=== PATIENT | female | born 1975 | race American Indian/Alaskan Native ===

== ENCOUNTER 2018-02-02 00:10 | Observation (INO) | payer BC ==
[2018-02-02 00:11] VITALS: BMI 43.2
[2018-02-02] MEDS ORDERED: Sodium Chloride 0.9% 1,000 ML IV STA (00:44)
--- NOTE | 2018-02-02 00:50 | ED PDOC ---
Arrival/HPI - General Chief Complaint: Headache Time Seen by Provider: 02/02/18 00:22 Historian: Patient - History of Present Illness Narrative History of Present Illness (Text): 02/02/18 00:45 42 year old female, whose past medical history includes cholecystectomy 1 year ago/anemia/hypertension/gastritis, obesity, presents to the emergency department complaining of upper abdominal pain associated with chest pain and difficulty breathing for the past 4 days. Patient reports that the pain is exertional. She denies any recent traveling. Patient states she does not have any fever, chills, cough, nausea/vomiting but reports pain every time she takes a deep breath in. Patient states she does not have a headache and disagrees with triage. Time/Duration: Other (4 days) Symptom Course: Unchanged Activities at Onset: Light Context: Home Past Medical History - Provider Review Nursing Documentation Reviewed: Yes - Travel History Have you recently traveled outside [place] w/in the past 3 mons?: No - Cardiac Hx Cardiac Disorders: Yes Hx Hypertension: Yes - Pulmonary Hx Respiratory Disorders: No Other/Comment: MORBID OBESITY - Neurological Hx Neurological Disorder: No - HEENT Hx HEENT Disorder: No - Renal Hx Renal Disorder: No - Endocrine/Metabolic Hx Endocrine Disorders: No - Hematological/Oncological Hx Blood Disorders: Yes Hx Anemia: Yes (ETIOLOGY UNKNOWN) - Integumentary Hx Dermatological Disorder: No - Musculoskeletal/Rheumatological Hx Musculoskeletal Disorders: Yes Hx Back Pain: Yes Hx Osteoarthritis: Yes - Gastrointestinal Hx Gastrointestinal Disorders: Yes Hx Gall Bladder Disease: Yes Other/Comment: HX: ABDOMINAL PAIN - Genitourinary/Gynecological Hx Genitourinary Disorders: Yes Other/Comment: HX: IUD INSERTED 1 YEARS AGO. LAST July - Psychiatric Hx Psychophysiologic Disorder: No Hx Substance Use: No - Surgical History Hx Cholecystectomy: Yes - Anesthesia Hx Anesthesia: Yes Hx Anesthesia Reactions: No - Suicidal Assessment Feels Threatened In Home Enviroment: No Family/Social History - Physician Review Nursing Documentation Reviewed: Yes Family/Social History: No Known Family HX Smoking Status: Never Smoked Hx Alcohol Use: No Hx Substance Use: No Allergies/Home Meds Allergies/Adverse Reactions: Allergies shrimp Allergy (Intermediate, Verified 07/02/17 14:37) RASH Home Medications: Home Meds Medication Instructions Recorded Confirmed Losartan/Hydrochlorothiazide 1 tab PO DAILY 05/18/16 07/02/17 [Losartan-Hctz 100-25 mg Tab] Ferrous Sulfate [Ferosul] 1 PO DAILY 02/02/18 hydrALAZINE [Apresoline] 1 PO TID 02/02/18 Review of Systems - Physician Review All systems were reviewed & negative as marked: Yes - Review of Systems Constitutional: absent: Fevers, Other (Chills) Eyes: absent: Vision Changes ENT: absent: Hearing Changes, Sore Throat, Rhinorrhea Respiratory: SOB. absent: Cough Cardiovascular: Chest Pain Gastrointestinal: Abdominal Pain. absent: Diarrhea, Nausea, Vomiting Musculoskeletal: absent: Arthralgias, Myalgias Skin: absent: Rash, Pruritis, Skin Lesions Neurological: absent: Headache Psychiatric: absent: Anxiety, Depression, Suicidal Ideation Physical Exam Vital Signs Reviewed: Yes Vital Signs Temp Pulse Resp BP Pulse Ox 02/02/18 03:40 98 02/02/18 03:35 69 20 143/92 H 98 02/02/18 02:41 77 18 158/90 H 99 02/02/18 02:25 64 18 166/94 H 99 02/02/18 00:32 98.4 F 69 20 164/101 H 98 Temperature: Afebrile Blood Pressure: Hypertensive Pulse: Regular Respiratory Rate: Normal Appearance: Positive for: Well-Appearing, Non-Toxic, Comfortable Pain Distress: Moderate Mental Status: Positive for: Alert and Oriented X 3 - Systems Exam Head: Present: Atraumatic, Normocephalic Pupils: Present: PERRL Extroacular Muscles: Present: EOMI Conjunctiva: Present: Normal Ears: Present: NORMAL TM, Normal Canal. No: Erythema Mouth: Present: Moist Mucous Membranes Neck: Present: Normal Range of Motion Respiratory/Chest: Present: Clear to Auscultation, Good Air Exchange. No: Respiratory Distress, Accessory Muscle Use Cardiovascular: Present: Regular Rate and Rhythm, Normal S1, S2. No: Murmurs Abdomen: Present: Tenderness (tender on the upper abdominal region specifically on the epigastric region, no cva tenderness). No: Distention, Peritoneal Signs , Rebound, Guarding Back: Present: Normal Inspection. No: CVA Tenderness, Midline Tenderness Upper Extremity: Present: Normal Inspection. No: Cyanosis, Edema Lower Extremity: Present: Normal Inspection. No: Edema Neurological: Present: GCS=15, CN II-XII Intact, Speech Normal Skin: Present: Warm, Dry, Normal Color. No: Rashes Psychiatric: Present: Alert, Oriented x 3, Normal Insight, Normal Concentration Medical Decision Making ED Course and Treatment: 02/02/18 00:45 Differential: MS vs. PE vs. Pneumonia vs. Gastritis vs. Pancreatitis vs. UTI vs. Muscular skeletal pain -Labs/cardiac enzyme/dimer/ua -EKG -CXR -IVF/pepcid/toradol -Observe and reassess 02/02/18 01:56 -Urine hcg is negative -HEART score is 4, will need to be admit/observe -EKG: NSR @ 68 BPM, no ST elevation or depression, no T wave inversion. -Chest xray show no active disease -Labs show no acute findings except hgb 9.9 -Dimer is negative -Cardiac enzyme is negative -BNP is negative -UA ordered and pending result -07/2016 echo/stress show: borderline LVH, mild MR/TR noted with mildly elevated pulmonary pressure with LVEF 54% -Pt. still feel chest pain and shortness of breath on exertion, will needs client technical specialist and business planning manager consult. -I spoke to Dr. Couch about this case, discussed about the case/labs/radiology result, request to order next set of cardiac enzyme for her and routine consult order for Dr. Brunner and Dr. Ocampo. She will follow up on any pending labs/ radiology study and carrying on the care for the patient for this point on. -I discussed with DR. Jackson and he will put in the admission order. - Lab Interpretations Microbiology Results: Microbiology Results 02/02/18 01:09 Urine,Clean Catch Urine Culture - Final No Growth (<1,000 CFU/ML) Lab Results: 02/02/18 01:01 02/02/18 01:01 Lab Results 02/02/18 01:09: Urine Color Yellow, Urine Appearance Sl cloudy, Urine pH 6.0, Ur Specific Jenners 1.025, Urine Protein Trace H, Urine Glucose (UA) Negative, Urine Ketones Negative, Urine Blood Small H, Urine Nitrate Negative, Urine Bilirubin Negative, Urine Urobilinogen 0.2, Ur Leukocyte Esterase Trace H, Urine RBC 1 - 3, Urine WBC 5 - 10, Ur Epithelial Cells 1 - 3, Urine Bacteria Few 02/02/18 01:01: Sodium 140, Potassium 3.7, Chloride 106, Carbon Dioxide 26, Anion Gap 13, BUN 12, Creatinine 0.4 L, Est GFR ( Amer) > 60, Est GFR ( Non-Af Amer) > 60, Random Glucose 91, Calcium 9.0, Magnesium 1.8, Total Bilirubin 0.1 L, AST 17, ALT 19, Alkaline Phosphatase 93, Lactate Dehydrogenase 368, Total Creatine Kinase 47, Troponin I < 0.01, NT-Pro-B Natriuret Pep 65.4, Total Protein 7.0, Albumin 3.7, Globulin 3.3, Albumin/Globulin Ratio 1.1, Lipase 33 02/02/18 01:01: D-Dimer, Quantitative 214 02/02/18 01:01: WBC 10.9, RBC 4.52, Hgb 9.9 L, Hct 31.5 L, MCV 69.7 L, MCH 21.9 L, MCHC 31.4, RDW 17.5 H, Plt Count 223, MPV 10.6, Gran % 54.5, Lymph % (Auto) 39.3 H, Elk % (Auto) 4.1, Eos % (Auto) 1.9, Baso % (Auto) 0.2, Gran # 5.92, Lymph # (Auto) 4.3 H, Elk # (Auto) 0.4, Eos # (Auto) 0.2, Baso # (Auto) 0.02 I have reviewed the lab results: Yes - RAD Interpretation Radiology Orders: 02/02/18 00:44 CHEST PORTABLE [RAD] Stat no active disease Binding Bench Worker: Radiologist - EKG Interpretation Interpreted by ED Physician: Yes Type: 12 lead EKG - Medication Orders Current Medication Orders: Acetaminophen (Tylenol 325mg Tab) 650 mg PO Q4H PRN PRN Reason: Pain, Mild (1-3) Acetaminophen (Tylenol 325mg Tab) 650 mg PO Q4H PRN PRN Reason: Fever >100.4 F Aspirin (Aspirin) 325 mg PO DAILY [facility] Last Admin: 02/03/18 14:02 Dose: 325 mg Cyclobenzaprine HCl (Flexeril) 5 mg PO TID [facility] Last Admin: 02/03/18 14:02 Dose: 5 mg Famotidine (Pepcid) 40 mg PO HS [facility] Last Admin: 02/02/18 22:11 Dose: 40 mg Ferrous Sulfate (Feosol) 324 mg PO DAILY [facility] Last Admin: 02/03/18 14:02 Dose: 324 mg Hydrochlorothiazide (Hydrodiuril) 25 mg PO DAILY [facility] Last Admin: 02/03/18 14:02 Dose: 25 mg Ibuprofen (Motrin Tab) 600 mg PO Q6H PRN PRN Reason: Headache Losartan Potassium (Cozaar) 100 mg PO DAILY [facility] Last Admin: 02/03/18 14:02 Dose: 100 mg Discontinued Medications Aspirin (Aspirin) 325 mg PO STAT STA Stop: 02/02/18 01:50 Last Admin: 02/02/18 01:57 Dose: 325 mg Famotidine (Pepcid) 20 mg IVP STAT STA Stop: 02/02/18 01:29 Last Admin: 02/02/18 01:40 Dose: 20 mg IVP Administration Document 02/02/18 01:40 SS (Rec: 02/02/18 01:41 SS [facility] [id number] Charges for Administration # of IVP Administrations 1 Sodium Chloride (Sodium Chloride 0.9%) 1,000 mls @ 999 mls/hr IV .Q1H1M STA Stop: 02/02/18 01:44 Last Admin: 02/02/18 01:41 Dose: 999 mls/hr eMAR Start Stop Document 02/02/18 01:41 SS (Rec: 02/02/18 01:41 SS [facility] [id number]) Intravenous Solution Start Date 02/02/18 Start Time 01:41 End Date 02/02/18 End time 02:42 Total Infusion Time 61 Ibuprofen (Motrin Tab) 400 mg PO Q6H [facility] Stop: 02/02/18 21:31 Last Admin: 02/02/18 22:09 Dose: 400 mg [facility] Pain/Vitals Document 02/02/18 22:09 [facility] (Rec: 02/02/18 22:10 [id number]) Pain Reassessment Is This A Pain ReAssessment? No Presence of Pain Presence of Pain Yes Pain Scale Used Pain Scale Used Numeric Location Pain Location Body Tso Description Constant Scale Used Numeric Radiation Location 6 Variations/Patterns 2 Pain Behavior Facial Grimacing Alleviating Factors Medication Re-Assess: FADI Pain/Vitals Document 02/02/18 23:09 [facility] (Rec: 02/03/18 05:52 [id number]) Pain Reassessment Is This A Pain ReAssessment? Yes Presence of Pain Presence of Pain No Ketorolac Tromethamine (Toradol) 30 mg IVP STAT STA Stop: 02/02/18 00:45 Last Admin: 02/02/18 01:41 Dose: 30 mg MAR Pain Assessment Document 02/02/18 01:41 SS (Rec: 02/02/18 01:41 SS [facility] [id number]) Pain Reassessment Is this a pain reassessment? No Presence of Pain Presence of Pain Yes IVP Administration Document 02/02/18 01:41 SS (Rec: 02/02/18 01:41 SS [facility] [id number]) Charges for Administration # of IVP Administrations 1 Re-Assess: MAR Pain Assessment Document 02/02/18 02:41 FDE (Rec: 02/02/18 04:18 FDE [id number]) Pain Reassessment Is this a pain reassessment? Yes Sleep Is patient sleeping during reassessment? Yes Nitroglycerin (Nitro-Bid 2% Oint) 1 ea TOP ONCE STA Stop: 02/02/18 02:32 Last Admin: 02/02/18 02:41 Dose: 1 ea - PA / GLAZIER SUPERVISOR / Resident Statement MD/DO has reviewed & agrees with the documentation as recorded. - Scribe Statement The provider has reviewed the documentation as recorded by the Scribe Chucho Flanagan Provider Scribe Attestation: All medical record entries made by the Scribe were at my direction and personally dictated by me. I have reviewed the chart and agree that the record accurately reflects my personal performance of the history, physical exam, medical decision making, and the department course for this patient. I have also personally directed, reviewed, and agree with the discharge instructions and disposition. Disposition/Present on Arrival - Present on Arrival Any Indicators Present on Arrival: No History of DVT/PE: No History of Uncontrolled Diabetes: No Urinary Catheter: No History of Decub. Ulcer: No History Surgical Site Infection Following: None - Disposition Have Diagnosis and Disposition been Completed?: Yes Diagnosis: Chest pain, Exertional shortness of breath, Anemia Disposition: HOSPITALIZED Disposition Time: 01:58 Patient Plan: Admission, Telemetry Patient Problems: Current Active Problems Problem Status Onset Anemia Acute Chest pain Acute Exertional shortness of breath Acute Condition: STABLE
[2018-02-02 01:20] LABS: BASO # 0.02 K/mm3 (0.0-2.0); BASO % 0.2 % (0.0-3.0); EOS # 0.2 (0.0-0.7); EOS % 1.9 % (1.5-5.0); GRAN # 5.92 (1.4-6.5); GRAN % 54.5 % (50.0-68.0); HEMOGLOBIN 9.9 g/dL (12.0-16.0); LYMPH # 4.3 (1.2-3.4); LYMPH % 39.3 % (22.0-35.0); MEAN CELL VOLUME 69.7 fl (80.0-105.0); MEAN CORPUSCULAR HEMOGLOBIN 21.9 pg (25.0-35.0); MEAN CORPUSCULAR HGB CONC 31.4 g/dl (31.0-37.0); MEAN PLATELET VOLUME 10.6 fl (7.0-11.0); MONO # 0.4 (0.1-0.6); MONO % 4.1 % (1.0-6.0); RBC 4.52 10^6/uL (3.5-6.1); RED CELL DISTRIBUTION WIDTH 17.5 % (11.5-14.5); WHITE BLOOD COUNT 10.9 10^3/ul (4.5-11.0)
[2018-02-02 01:40] LABS: ALB/GLOB RATIO 1.1 (1.1-1.8); ALBUMIN 3.7 g/dL (3.0-4.8); ALT/SGPT 19 U/L (7-56); AST/SGOT 17 U/L (14-36); BLOOD UREA NITROGEN 12 mg/dL (7-21); GFR AFRICAN-AMERICAN > 60; GFR NON-AFRICAN AMERICAN > 60; LIPASE 33 U/L (23-300)
[2018-02-02 01:51] LABS: TROPONIN I < 0.01 ng/mL
[2018-02-02 01:53] LABS: B-TYPE NATRIURETIC PEPTIDE 65.4 pg/mL (0-450)
[2018-02-02 02:00] LABS: URINE BILIRUBIN NEGATIVE (NEGATIVE); URINE BLOOD SMALL (NEGATIVE); URINE GLUCOSE (UA) NEGATIVE (NEGATIVE); URINE LEUKOCYTE ESTERASE TRACE Leu/uL (NEGATIVE); URINE PROTEIN TRACE mg/dL (<30 mg/dL); URINE UROBILINOGEN 0.2 E.U./dL (<1 E.U./dL)
[2018-02-02 02:03] LABS: URINE APPEARANCE SL CLOUDY (CLEAR); URINE COLOR YELLOW (YELLOW)
[2018-02-02 02:17] LABS: URINE BACTERIA FEW (NEG)
[2018-02-02] MEDS ORDERED: Nitroglycerin 2% Ointment Foilpak UD TOP STA (02:31)
[2018-02-02 06:30] LABS: TROPONIN I < 0.01 ng/mL
[2018-02-02 08:03] LABS: HDL CHOLESTEROL 29 mg/dL (29-60)
[2018-02-02 08:13] LABS: LDL CHOLESTEROL 67 mg/dL (0-129)
--- NOTE | 2018-02-02 09:56 | CARD ---
APPROVED REPORT Date of service: 02/02/2018 EKG Measurement Heart [id number] <Conclusion> Normal sinus rhythm Minimal voltage criteria for LVH, may be normal variant Borderline ECG
[2018-02-02] MEDS ORDERED: Non Formulary Medication (Losartan/Hydrochlorothiazide [Losartan-Hctz 100-25 Mg Tab] 1 TAB PO SCH (10:00)
[2018-02-02 10:49] LABS: IRON 24 ug/dL (45-180)
[2018-02-02 11:01] LABS: % IRON SATURATION 7 % (20-55); TOTAL IRON BINDING CAPACITY 345 ug/dL (265-497)
--- NOTE | 2018-02-02 12:25 | RAD ---
Date of service: 02/02/2018 HISTORY: chest pain and shortness of breath COMPARISON: No prior. FINDINGS: LUNGS: No active pulmonary disease. PLEURA: No significant pleural effusion identified, no pneumothorax apparent. CARDIOVASCULAR: No radiographic findings to suggest acute or significant cardiovascular disease. OSSEOUS STRUCTURES: No significant abnormalities. VISUALIZED UPPER ABDOMEN: Normal. OTHER FINDINGS: None. IMPRESSION: No active disease.
[2018-02-02 12:40] LABS: FOLATE 10.6 ng/mL
--- NOTE | 2018-02-02 14:33 | CON ---
Copied To: Cristi Ocampo MD Attending MD: Cristi Ocampo MD DATE: 02/02/2018 PULMONARY CONSULT REFERRING PHYSICIAN: Natasha Couch MD. REASON FOR CONSULT: Loud snoring, daytime sleepy and tired, headache, short of breath, epigastric pain. HISTORY OF PRESENT ILLNESS: This is a 42-year-old obese female with past medical history significant for hypertension, anemia, gastritis, history of GERD, comes into emergency room with epigastric atypical pain, severe headache, neck pain, shoulder pain, upper back pain. She had been under a lot of stress lately. No vomiting. No hematuria. No diarrhea, leg pain or leg swelling. PAST MEDICAL HISTORY: Hypertension, obesity, GERD, anemia, recently has cholecystectomy, also has osteoarthritis, history of IUD. ALLERGIES: ALLERGY TO SHRIMPS, DEVELOPED RASH. SOCIAL HISTORY: Nonsmoker, nondrinker. Works at a [employer]. FAMILY HISTORY: No significant cardiopulmonary disease reported. MEDICATIONS: She is on aspirin 325 mg daily, Cozaar 100 mg daily, ferrous sulfate 324 mg daily, hydrochlorothiazide 25 mg daily, Motrin 400 mg every 6 hours, Pepcid 40 mg at bedtime, Tylenol p.r.n. REVIEW OF SYSTEMS: Had headache, neck discomfort, shoulder pain, mid back pain radiated to the right, epigastric discomfort. No abdominal pain. Has epigastric pain, though. No dysuria. No leg pain or leg swelling. Admits to have snoring, daytime sleepy and tired. PHYSICAL EXAMINATION: VITAL SIGNS: Temp is 98, heart rate is 72, respiratory rate is 18, blood pressure 149/90, pulse ox 100% on room air. HEENT: Moist mucous membrane. Crowded airway. Mallampati score is 4. NECK: Has a neck, upper back, shoulder muscle tenderness. LUNGS: Fair airflow. HEART: S1 and S2. ABDOMEN: Epigastric area has some tenderness. EXTREMITIES: There is no edema. NEUROLOGICAL: Awake and alert. Follows simple command. LABORATORY DATA: Shows hemoglobin 9.9, hematocrit 31.5, WBC 10.9, platelet is 223, D-dimer 214. Sodium 140, potassium 3.7, chloride 106, bicarbonate 26, BUN 12, creatinine 0.4, glucose 91, calcium 9, magnesium 1.8, iron is 24, AST 17, ALT 19, alk phos is 93. Troponin less than 0.01. Albumin 3.7, globulin 3.7, triglycerides 75, cholesterol is 120, lipase 33, B12 is 642, folate 10, TSH is 1.40. Chest x-ray done in the ER is unremarkable. IMPRESSION AND PLAN: Hypertension, anemia, which is iron-deficiency, also has a gastroesophageal reflux disease, may have a sleep apnea syndrome. Most likely has a musculoskeletal-type pain related to stress. Case discussed with nursing staff. Agreed with the present treatment. Gastric prophylaxis, DVT prophylaxis. We will get CT of the head and cervical spine. Continue Motrin. We will place her on muscle relaxant. Outpatient, will need attended sleep study. Thank you and we will follow with you. Cristi Ocampo MD
--- NOTE | 2018-02-02 15:20 | CT ---
Date of service: 02/02/2018 PROCEDURE: CT HEAD WITHOUT CONTRAST. HISTORY: headache COMPARISON: None available. TECHNIQUE: Axial computed tomography images were obtained through the head/brain without intravenous contrast. Radiation dose: Total exam DLP = 949 mGy-cm. This CT exam was performed using one or more of the following dose reduction techniques: Automated exposure control, adjustment of the mA and/or kV according to patient size, and/or use of iterative reconstruction technique. FINDINGS: HEMORRHAGE: No intracranial hemorrhage. BRAIN: No mass effect or edema. No atrophy or chronic microvascular ischemic changes. VENTRICLES: Unremarkable. No hydrocephalus. CALVARIUM: Unremarkable. PARANASAL SINUSES: Unremarkable as visualized. No significant inflammatory changes. MASTOID AIR CELLS: Unremarkable as visualized. No inflammatory changes. OTHER FINDINGS: None. IMPRESSION: No acute intracranial findings
--- NOTE | 2018-02-02 15:26 | CT ---
Date of service: 02/02/2018 PROCEDURE: CT Cervical Spine without contrast HISTORY: radiculopathy COMPARISON: None available. TECHNIQUE: Axial computed tomography images were obtained of the cervical spine without the use of intravenous contrast. Coronal and sagittal reformatted images were created and reviewed. Radiation dose: Total exam DLP = 821 mGy-cm. This CT exam was performed using one or more of the following dose reduction techniques: Automated exposure control, adjustment of the mA and/or kV according to patient size, and/or use of iterative reconstruction technique. FINDINGS: VERTEBRAE: No fracture. Normal alignment. No destructive bony lesion. There is a fragmented osteophyte arising from the superior anterior corner of the C5 vertebral body. This is of doubtful clinical significance. DISCS/SPINAL CANAL/NEURAL FORAMINA: No significant central canal or neural foraminal stenosis. Discs heights are grossly preserved. PARASPINAL SOFT TISSUES: Unremarkable. OTHER FINDINGS: None. IMPRESSION: No acute findings
--- NOTE | 2018-02-02 18:26 | CARD ---
APPROVED REPORT Date of service: 02/02/2018 EXAM: Two-dimensional and M-mode echocardiogram with Doppler and color Doppler. INDICATION CP 2D DIMENSIONS Left Atrium (2D)3.3 (1.6-4.0cm)IVSd1.4 (0.7-1.1cm) LVDd5.0 (3.9-5.9cm)PWd1.3 (0.7-1.1cm) LVDs3.4 (2.5-4.0cm)FS (%) 31.5 % LVEF (%)59.1 (>50%) M-Mode DIMENSIONS Aortic Root3.50 (2.2-3.7cm)Aortic Cusp Exc.3.00 (1.5-2.0cm) Aortic Valve AoV Peak Zaiqskzi653.0cm/Yang Peak GR.11mmHg Mitral Valve MV E Azpslhor06.2cm/sMV A Ourcxday21.5cm/sE/A ratio1.5 TDI Lateral E' Peak V8.50cm/sMedial E' Peak V8.97cm/sE/Lateral E'11.0 E/Medial E'10.4 Tricuspid Valve TR Peak Xypjzska056gn/sRAP [id number] Peak Gr.28mmHg [id number] LEFT VENTRICLE The left ventricle is normal size. There is mild concentric left ventricular hypertrophy. The left ventricular function is normal. The left ventricular ejection fraction is within the normal range. Ej.Fr:59%. RIGHT VENTRICLE The right ventricle is normal size. The right ventricular systolic function is normal. ATRIA The left atrium size is normal. The right atrium size is normal. AORTIC VALVE The aortic valve is normal in structure. MITRAL VALVE The mitral valve is normal in structure. Mitral regurgitation is trace to mild. TRICUSPID VALVE The tricuspid valve is normal in structure. There is trace to mild tricuspid regurgitation. RVSP 33mm Hg. PULMONIC VALVE The pulmonary valve is normal in structure. There is trace pulmonic valvular regurgitation. PERICARDIAL EFFUSION There is no pericardial effusion. <Conclusion> The left ventricle is normal size. There is mild concentric left ventricular hypertrophy. LV Systolic Function Normal with LV Ej.Fr:59% The right ventricle is normal size. The right ventricular systolic function is normal. The aortic valve is normal in structure. The mitral valve is normal in structure. Mitral regurgitation is trace to mild. The tricuspid valve is normal in structure. There is trace to mild tricuspid regurgitation. RVSP 33mm Hg. There is no pleural effusion. There is no pericardial effusion.
--- NOTE | 2018-02-02 20:54 | CON ---
Copied To: Cristi Flores MD Attending MD: Cristi Flores MD DATE: 02/02/2018 TYPE OF DICTATION: CARDIAC EVALUATION. REASON FOR CONSULTATION: Admitted with chest pain, rule out coronary artery disease. BRIEF CLINICAL HISTORY: This is a 42-year-old female with past medical history significant for hypertension, gastritis, morbid obesity, history of cholecystectomy, came in with right-sided chest pain underneath the breast, whole body right side, also retrosternal pain and tenderness on the chest on pressing the front of the chest. The patient denies any fevers, chills, cough. PAST MEDICAL HISTORY: Significant for hypertension, anemia, gastritis. SOCIAL HISTORY: Denies any smoking. Denies any history of alcohol abuse. FAMILY HISTORY: Noncontributory. No history of coronary artery disease. CURRENT MEDICATIONS: The patient is at home taking hydralazine 1 tablet p.o. t.i.d., losartan 1 tablet, ferrous sulfate 1 tablet daily. REVIEW OF SYSTEMS: As per HPI. PHYSICAL EXAMINATION: VITAL SIGNS: Height of the patient is 5 feet 5 inches. Weight of the patient 280 pounds. Body mass index 46.6 kg/m2. Rest of the examination as follows: Temperature afebrile, heart rate 72, blood pressure 149/90. HEENT: PERRLA, intact. NECK: Supple. No carotid bruits or thyromegaly. CHEST: Clear to auscultation. HEART: S1 and S2 regular. ABDOMEN: Soft. EXTREMITIES: Clubbing and cyanosis negative. LABORATORY DATA: Blood workup as follows; WBC 10.9, hemoglobin 9.9, hematocrit 31.5, platelet count 223. Chemistry shows sodium 140, potassium 3.7, chloride 106, carbon dioxide 26, anion gap of 13, BUN 12, creatinine 0.4. Troponin 0.01, 0.04. IMPRESSION AND PLAN: Atypical chest pain, tenderness on the sternum as well as right side of the body is tender, morbid obesity, hypertension, multiple risk factors of coronary artery disease, suggest a stress test as an outpatient and echocardiogram today. Get lipid profile, TSH. We will also add nonsteroidal antiinflammatory drug. We will follow once the troponins remain negative. We will discontinue telemetry and schedule a stress test as an outpatient. We will follow with you. Thank you, Dr. Couch, for providing us the opportunity in taking care of the patient, Ginna Gabriel. Cristi Flores MD cc: Natasha Couch MD
--- NOTE | 2018-02-03 07:12 | CP.PCM.PN ---
Subjective - Date & Time of Evaluation Date of Evaluation: 02/03/18 Time of Evaluation: 06:25 - Subjective Subjective: Easily awaken, no distress,episode of headache last night Reason for consultation and follow up: Cardiac evaluation of chest pain, right sided chest pain underneath breast,history of hypertension,gastritis,morbidly obese. Seen and examined by me and Dr. Flores Objective - Vital Signs/Intake and Output Vital Signs (last 24 hours): Temp Pulse Resp BP Pulse Ox 97.7 F 74 18 149/90 100 02/02/18 06:00 02/02/18 10:00 02/02/18 06:00 02/02/18 06:00 02/02/18 06:00 Intake and Output: 02/03/18 02/03/18 06:59 18:59 Intake Total 780 Balance 780 - Medications Medications: Current Medications Acetaminophen (Tylenol 325mg Tab) 650 mg PO Q4H PRN PRN Reason: Pain, Mild (1-3) Acetaminophen (Tylenol 325mg Tab) 650 mg PO Q4H PRN PRN Reason: Fever >100.4 F Aspirin (Aspirin) 325 mg PO DAILY [facility] Last Admin: 02/02/18 10:01 Dose: 325 mg Cyclobenzaprine HCl (Flexeril) 5 mg PO TID [facility] Last Admin: 02/02/18 17:13 Dose: 5 mg Famotidine (Pepcid) 40 mg PO HS [facility] Last Admin: 02/02/18 22:11 Dose: 40 mg Ferrous Sulfate (Feosol) 324 mg PO DAILY [facility] Last Admin: 02/02/18 10:02 Dose: 324 mg Hydrochlorothiazide (Hydrodiuril) 25 mg PO DAILY [facility] Last Admin: 02/02/18 10:01 Dose: 25 mg Losartan Potassium (Cozaar) 100 mg PO DAILY [facility] Last Admin: 02/02/18 10:02 Dose: 100 mg - Constitutional Appears: No Acute Distress - Eye Exam Eye Exam: Normal appearance - ENT Exam ENT Exam: Mucous Membranes Moist - Respiratory Exam Respiratory Exam: Decreased Breath Sounds, NORMAL BREATHING PATTERN - Cardiovascular Exam Cardiovascular Exam: +S1, +S2 - GI/Abdominal Exam GI & Abdominal Exam: Soft, Normal Bowel Sounds - Extremities Exam Extremities Exam: Normal Capillary Refill - Neurological Exam Neurological Exam: Alert, Awake, Oriented x3 - Psychiatric Exam Psychiatric exam: Normal Affect - Skin Skin Exam: Intact, Warm Assessment and Plan - Assessment and Plan (Free Text) Assessment: A 42 year old female who came in to the ER due to complaining of upper abdominal pain associated with chest pain and difficulty breathing, Right sided chest pain underneath breast, retrosternal chestpain with tenderness.history of anemia, hypertension,gastritis, obesity, cholecystectomy. Atypical chest pain. troponin normal, Echo showed normal LV systolic function LVEF 59%, trace MR/TR, normal valvular function. Plan: Keep NPO Stress test today while patient still in hospital (assumed patient being discharged yesterday, so out patient stress test recommended) Denies chest pain Uncontrol blood pressure Echo showed normal LV systolic function LVEF 59%, trace MR/TR, normal valvular function. Troponin normal x 2 EKG NSR, no ischemia Had headache last night and claimed that Motrin works better than Tylenol Will reorder Motrin On ASA 325 mg daily, Flexeril 5 mg TID, Hydrodiuril 25 mg daily,Cozaar 100 mg daily Continue current treatment Continue current medications Will follow up Plan and treatment discussed with Dr. Flores
[2018-02-03 07:35] LABS: BLOOD UREA NITROGEN 9 mg/dL (7-21); CALCIUM 8.8 mg/dL (8.4-10.5); GFR AFRICAN-AMERICAN > 60; GFR NON-AFRICAN AMERICAN > 60
[2018-02-03 07:43] VITALS: RESP 20
--- NOTE | 2018-02-03 11:36 | HP ---
02/02/18 Copied To: Natasha Couch MD Attending MD: Natasha Couch MD CHIEF COMPLAINT: Headache, chest pain. HISTORY OF PRESENT ILLNESS: Ms. Chacko, 42-year-old female with past medical history of cholecystectomy 1 year ago, anemia, hypertension, gastritis, obesity. Came to the emergency room, complaining about upper abdominal pain associated with chest pain and headache, difficulty breathing for the past 4 days. The patient reports that the pain is exertional. She denies any recent travel. No fever. No chills. She states that she does not have nausea or vomiting, but reports pain every time she takes deep breath. The patient states that she does not have hematuria, hematochezia. PAST MEDICAL HISTORY: Hypertension; morbid obesity; anemia; back pain; osteoarthritis; IUD insertion 1 year ago, last 07/2014 as per the patient; cholecystectomy. FAMILY HISTORY: Father and mother noncontributory. HABITS: Never smoked. No drugs. No ethanol. ALLERGIES: ALLERGIC WITH SHRIMP. MEDICATIONS: Losartan, metoprolol. REVIEW OF SYSTEMS: The patient was seen and examined on bedside. Complaining about pains and aches. No fever or chills. No vision changes. No hearing changes, sore throat, rhinorrhea. Feeling shortness of breath and chest pain and abdominal pain. No diarrhea, nausea, vomiting. No arthralgia, myalgia. No rash, pruritus, skin lesion. No headache. No anxiety, depression, suicidal ideations. PHYSICAL EXAMINATION: VITAL SIGNS: Temperature 98.4, pulse 69, respiratory rate 20, blood pressure 164/101, pulse oximetry 98. HEENT: Head normocephalic, atraumatic. Eyes PERRLA. Extraocular muscles intact. Conjunctivae clear. Nose patent. Mucous membrane moist. NECK: Supple. No carotid bruit. No JVD or thyromegaly. CHEST: Bilaterally symmetrical. HEART: S1 and S2 positive. LUNGS: Clear to auscultation. ABDOMEN: Soft. Tender on the upper abdomen region, especially on the epigastric region. No CVA tenderness. No distention. No sign. No rebound or guarding. EXTREMITIES: No edema. No cyanosis. NEUROLOGICAL: The patient is awake, alert. Moving all 4 extremities. Obeys simple order. Cranial nerves II through XII are grossly intact. LABORATORY DATA: White blood cells 10.9, hemoglobin 9.9, hematocrit 31.5, platelets 223. Sodium 140, potassium 3.7, BUN 12, creatinine 0.4, glucose 91. ASSESSMENT AND PLAN: Ms. Ginna Gabriel, 42-year-old lady with anemia, chest pain, shortness of breath on exertion. CAT scan of the head done. Cervical spine CT done. Echocardiography done. Hypertension, iron deficiency, gastroesophageal reflux disease, sleep apnea syndrome, morbid obesity. Gastric, DVT prophylaxis provided. Dr. Ocampo put the patient on muscle relaxant. Appreciated Dr. Ocampo and Dr. Flores's input. History of gastritis. According to associate professor of literature, chest pain is atypical. Tenderness on the sternum as well as the right side of the body is tender. Cardiology suggested stress test. We will get lipid profile. CAT scan of the head reviewed. According to Dr. Gayle, no acute intracranial finding. Cervical spine CT reviewed. No acute finding as per radiologist. Out of bed, physical therapy, repeat labs. We will follow up. Natasha Couch MD [facility]
[2018-02-03 15:16] VITALS: BP 150/89; PULSE 85; TEMP 98.2; O2SAT 95
--- NOTE | 2018-02-03 22:12 | CARD ---
APPROVED REPORT Date of service: 02/03/2018 Protocol: LEXISCAN Test Type: Lexiscan Sestamibi Stress Test Attending Physician: Dr. Cristi Flores Referring Physician: Dr. Miguel A Wright Test Indications: Chest Pain Height:5 ft 5 in Weight:280lbs Medications: Acetaminophen,Aspirin,Flexeril, Pepcid, Feosol, Hydrodiuril,Ibuprofen, Cozaar Medical History: 42 y/o female. Hx of sshortness of breath, hypertension, anemia. Target HR: 178 bpm Resting ECG: normal Resting Heart Rate: 71 bpm Resting Blood Pressure: 160/100mmHg Submaximum (85%): 151 bpm PROCEDURE Pharmacologic stress testing was performed using 0.4mg per 5ml of regadenoson given intravenously over 7-10 seconds. Reversal agent aminophyline 100 mg, given intravenously for Headache. POST EXERCISE Reason for Termination: Protocol completed Target HR: No Max HR: 83 bpm 72% of Maximum Predicted HR: 178 bpm Exercise duration: 00:31 min:sec, 0 Stage Exercise capacity: 1.0METs Max Blood Pressure: 160/100mmHg Blood Pressure response to exercise: normal resting BP - appropriate response Heart Rate response to exercise: appropriate Chest Pain: No, none Angina index: 0 Arrhythmia: No, none ST Change: No, none Deviation: 0 mm INTERPRETATION Stress EKG Conclusion: Negative IV Lexiscan for ischemia and for chest pain, Nuclear scan to follow. Signed by Cristi Flores Electronically Approved: 02/03/2018 12:51:46 EXAM: Myocardial Perfusion REST/STRESS Stress Test Type: Pharmacologic Imaging Protocol Rest Spect myocardial perfusion imaging was performed in supine position 50 minutes following the injection of 10.3 mCi of Tc-99 Myoview. At peak stress, the patient was injected intravenously with 30.9mCi of Tc-99 tetrofosmin after an infusion time of 0 minutes and 10 seconds. Gated Stress Spect was performed 75 minutes after intravenous Tc-99 Myoview injection. The images were gated to evaluate regional wall motion and calculate ventricular ejection fraction.Images were reconstructed using backfilter projection method in short horizontal and verticle long axis. Spect slices were generated. LV Perfusion The quality of the study is good. The left ventricle is mildly enlarged in size. The right ventricle is unremarkable. The lung uptake is normal. The distribution of tracer reveals mildly to moderately decreased perfusion involving mid t odistal anterior wall on the stress study. The remainder of the LV myocardium is unremarkable. The rest myocardial perfusion study shows no significant change. Wall Motion Wall motion study shows good contractility of the left ventricle. LVEF = 57%. Conclusion 1. Essentially normal SPECT myocardial perfusion study. 2. Fixed, anterior defect is most likely due to breast attenuation. 3. Normal gated wall motion of the left ventricle. 4. In comparison with the last study of 08/04/2016, there is no significant change.
== END 2018-02-03 18:36 | disposition home or self-care (01) ==
LOC: ED 00:10 → ERH 01:52 → 2RNO 03:59 → 5RSO 14:40
PROVIDERS: ADMIT Internal Medicine; ATTEND Internal Medicine
DX: R07.89 Other chest pain (principal); I10 Essential (primary) hypertension; D50.9 Iron deficiency anemia, unspecified; K29.70 Gastritis, unspecified, without bleeding; K21.9 Gastro-esophageal reflux disease without esophagitis; G47.30 Sleep apnea, unspecified; E61.1 Iron deficiency; M19.90 Unspecified osteoarthritis, unspecified site; E66.01 Morbid (severe) obesity due to excess calories; Z68.42 Body mass index [BMI] 45.0-49.9, adult
CPT/HCPCS: 36415; 70450; 71045; 72125; 78452; 80048; 80053; 80061; 81001; 82550; 82607; 82746; 83036; 83540; 83550; 83615; 83690; 83735; 83880; 84443; 84484; 85025; 85378; 87086; 93005; 93017; 93306; 96361; 96374; 96375; 99285; A9502; G0378; J1885; J2785; J7030

== ENCOUNTER 2018-07-06 11:08 | Outpatient (CLI) | payer BC | END 2018-07-06 11:09 | disposition home or self-care (01) | LOC: RAD 11:08 ==